=== PATIENT | male | born 1980 ===

== ENCOUNTER 2020-10-24 22:12 | Emergency (ER) | payer SELFPAY ==
[2020-10-24 22:17] VITALS: BP 126/79
--- NOTE | 2020-10-24 22:27 | Emergency Department Report ---
Chief Complaint: Urogenital-Male Stated Complaint: DISCHARGE FROM [facility] Time Seen by Provider: 10/24/20 22:24 - HPI History of Present Illness: Patient advises he presents for STD evaluation. Patient denies fevers no chills no nausea vomiting he is alert he is oriented x3 amatory with steady gait with no acute distress. - ROS Review of Systems: There is no fevers no chills, no weight loss, no nausea vomiting no abdominal pain no chest pain no shortness of breath, no back pain, no dysuria no hematuria - Exam Vital Signs: Vital Signs 10/24/20 22:15 Temperature 98.7 F Pulse Rate 115 H Respiratory 17 Rate Blood Pressure 126/79 O2 Sat by Pulse 100 Oximetry Physical Exam: Patient appears well well-nourished well-hydrated , patient alert oriented x3 he is amatory there is no abdominal tenderness no back pain no penile discharge rash or open lesions. MSE screening note: Focused history and physical exam performed. Due to findings the following was ordered: Patient does not have an emergency medical condition patient would like to follow-up with health department for evaluation and treatment for STD. ED Medical Decision Making - Medical Decision Making Patient will follow-up with health department for treatment for STD patient has no acute emergency condition at this time ED Disposition for MSE Clinical Impression: STI (sexually transmitted infection) Disposition: MED SCREENING EXAM-LEFT Is pt being admited?: No Does the pt Need Aspirin: No Condition: Stable
== END 2020-10-24 23:00 | disposition left against medical advice (07) ==
LOC: ED 22:12
DX: R36.9 Urethral discharge, unspecified (principal); Z53.21 Procedure and treatment not carried out due to patient leaving prior to being seen by health care provider